=== PATIENT | female | born 1985 | race Caucasian/White ===

== ENCOUNTER 2024-01-11 19:03 | Inpatient (IN) | payer OTHER, MEDICAID ==
[~2024-01-11] VITALS: Ht 165.1 cm; Wt 74.8 kg
[~2024-01-11 19:03] MED LIST: ADAL40KI SQ; ATOR10TA PO; ESCI5TAB PO; INSLIS SUBCUT; INSU100I28 SQ; LOSA50TA41 PO; MESA800T PO; PANT40SU PO; SEMA2PEN
[2024-01-11 20:29] LABS: BASOPHILS % 0.5 % (0.0-2.0); CHLORIDE 105 mEq/L (98-107); HEMOGLOBIN. 11.7 g/dL (12.0-16.0); LYMPHOCYTES % 18.1 % (20.0-50.0); MEAN CORPUSCULAR HEMOGLOBIN 29.7 pg (28.0-32.0); MEAN CORPUSCULAR HGB CONC 33.4 g/dL (31.0-37.0); MEAN CORPUSCULAR VOLUME 88.9 fL (81.0-99.0); MONOCYTES % 7.4 % (2.0-8.0); PLATELET 315 x1000/uL (130-400); RED BLOOD CELL COUNT 3.93 mill/uL (4.2-5.4); RED CELL DISTRIBUTION WIDTH 13.5 % (11.6-14.6); SODIUM 137 mEq/L (136-145); WHITE BLOOD COUNT 8.9 x1000/uL (4.5-11.0)
[2024-01-11 20:30] LABS: CARBON DIOXIDE 26 mEq/L (21-32)
[2024-01-11 20:33] LABS: PROTHROMBIN TIME 10.7 sec (9.6-11.0)
[2024-01-11 20:35] LABS: CREATININE 0.5 mg/dL (0.6-1.0); GLUCOSE 88 mg/dL (70-105); UREA NITROGEN BLOOD 8 mg/dL (9-23)
[2024-01-11 20:37] LABS: ALANINE AMINOTRANSFERASE 14 IU/L (10-49); ALBUMIN 4.3 g/dL (3.2-4.8); ASPARTATE AMINOTRANSFERASE 35 IU/L (<34); BILIRUBIN DIRECT 0.2 mg/dL (<=3.0); BILIRUBIN TOTAL 0.9 mg/dL (0.1-1.0); PROTEIN TOTAL 7.3 g/dL (6.0-8.3)
[2024-01-11 20:38] LABS: HCG SCREEN NEGATIVE
[2024-01-11 20:46] LABS: POTASSIUM 2.8 mEq/L (3.5-5.1)
[2024-01-11] MEDS: SODIUM CHLORIDE 0.9% 1,000 ML IV ONE (20:51)
[2024-01-11] MEDS: MORPHINE SULFATE 4 MG/ML INJ (FOR IV/IM USE) IV ONE (20:51)
[2024-01-11] MEDS: DIPHENHYDRAMINE 50MG/ML VIAL IV ONE (20:51)
[2024-01-11] MEDS: ONDANSETRON HCL 4MG/2ML INJ IV ONE (20:51)
[2024-01-11] MEDS: SODIUM CHL 0.9% + KCL 20MEQ/L 1,000 ML IV SCH (21:00)
[2024-01-11] MEDS: POTASSIUM CHLORIDE 20MEQ/PACKET PO NR (21:00)
[2024-01-11] MEDS: IOHEXOL-300 100 ML BOTTLE ONE (23:36)
[2024-01-12 01:59] LABS: CLARITY URINE CLEAR (CLEAR); COLOR URINE YELLOW (YELLOW); GLUCOSE URINE NEGATIVE (NEGATIVE); KETONES URINE 2+ (NEGATIVE); LEUKOCYTE ESTERASE URINE NEGATIVE (NEGATIVE); NITRITE URINE NEGATIVE (NEGATIVE); OCCULT BLOOD URINE 3+ (NEGATIVE); PH URINE 6.5 (4.5-8.0); PROTEIN URINE NEGATIVE (NEGATIVE); SPECIFIC GRAVITY URINE 1.079 (1.005-1.030)
[2024-01-12 02:15] LABS: BACTERIA URINE TRACE; SQUAMOUS EPITHELIAL CELL URINE FEW /lpf (RARE/1+); WBC URINE NONE SEEN /hpf (0-2)
[2024-01-12] MEDS ORDERED: NALOXONE HCL 0.4MG/ML VIAL IV PRN (02:15)
[2024-01-12] MEDS: HYDROCODONE/ACETAMINOPHEN 5/325MG TABLET PO PRN (02:17)
[2024-01-12] MEDS: MORPHINE SULFATE 2 MG/ML INJ (NOT FOR IM USE) IV PRN (04:04)
[2024-01-12] MEDS: MORPHINE SULFATE 2 MG/ML INJ (NOT FOR IM USE) IV NR (09:00)
[2024-01-12] MEDS: ONDANSETRON HCL 4MG/2ML INJ IV PRN (09:00)
[2024-01-12] MEDS: ENOXAPARIN 40MG/0.4ML SYR SUBCUT SCH (09:04)
[2024-01-12 09:15] LABS: HEMATOCRIT 33.8 % (36.0-48.0); HEMOGLOBIN 11.4 g/dL (12.0-16.0); MEAN CORPUSCULAR HGB CONC 33.7 g/dL (31.0-37.0); MEAN CORPUSCULAR VOLUME 89.1 fL (81.0-99.0); PLATELET 309 x1000/uL (130-400); RED BLOOD CELL COUNT 3.79 mill/uL (4.2-5.4); RED CELL DISTRIBUTION WIDTH 13.3 % (11.6-14.6); WHITE BLOOD COUNT 9.8 x1000/uL (4.5-11.0)
[2024-01-12] MEDS: DIPHENHYDRAMINE 50MG/ML VIAL IV NR (09:38)
[2024-01-12] MEDS: METHYLPREDNISOLONE SOD SUCC 125MG/2ML (ACT-O-VIAL) IV SCH (12:53)
[2024-01-12] MEDS: SODIUM CHLORIDE 0.9% 3ML FLUSH IVF SCH (14:07)
[2024-01-12] MEDS: MESALAMINE 400 MG CAPSULE.DR PO SCH (18:17)
[2024-01-12] MEDS: SODIUM CHL 0.9% + KCL 20MEQ/L 1,000 ML IV SCH (18:21)
[2024-01-12 20:00] VITALS: BP 101/61; PULSE 82; RESP 18; RESP 19; TEMP 36.61404; TEMP 36.6404; O2SAT 95
[2024-01-12] MEDS: DIPHENHYDRAMINE 50MG/ML VIAL IM PRN (23:41)
[2024-01-13] VITALS: BP 101/55; PULSE 72; RESP 18; TEMP 36.83628; O2SAT 95
[2024-01-13 00:50] LABS: CHLORIDE 103 mEq/L (98-107); POTASSIUM 2.9 mEq/L (3.5-5.1); SODIUM 137 mEq/L (136-145)
[2024-01-13 00:51] LABS: CALCIUM 8.7 mg/dL (8.7-10.4); CARBON DIOXIDE 26 mEq/L (21-32)
[2024-01-13 00:56] LABS: CREATININE 0.5 mg/dL (0.6-1.0); GLUCOSE 151 mg/dL (70-105)
[2024-01-13 01:03] LABS: UREA NITROGEN BLOOD < 5 mg/dL (9-23)
[2024-01-13 04:00] VITALS: BP 88/48; PULSE 74; RESP 19; TEMP 36.114; O2SAT 97
[2024-01-13 07:22] LABS: CARBON DIOXIDE 26 mEq/L (21-32); CHLORIDE 103 mEq/L (98-107); POTASSIUM 3.1 mEq/L (3.5-5.1); SODIUM 138 mEq/L (136-145)
[2024-01-13 07:25] LABS: BASOPHILS % 0.1 % (0.0-2.0); HEMATOCRIT. 34.3 % (36.0-48.0); HEMOGLOBIN. 11.7 g/dL (12.0-16.0); LYMPHOCYTES % 8.8 % (20.0-50.0); MEAN CORPUSCULAR HEMOGLOBIN 30.1 pg (28.0-32.0); MEAN CORPUSCULAR VOLUME 88.5 fL (81.0-99.0); MEAN PLATELET VOLUME 7.8 fl (7.4-10.4); MONOCYTES % 3.2 % (2.0-8.0); NEUTROPHILS % 87.9 % (40.0-76.0); PLATELET 318 x1000/uL (130-400); RED BLOOD CELL COUNT 3.87 mill/uL (4.2-5.4); RED CELL DISTRIBUTION WIDTH 13.1 % (11.6-14.6); WHITE BLOOD COUNT 8.5 x1000/uL (4.5-11.0)
[2024-01-13 07:27] LABS: CREATININE 0.5 mg/dL (0.6-1.0)
[2024-01-13 07:28] LABS: GLUCOSE 138 mg/dL (70-105); UREA NITROGEN BLOOD 6 mg/dL (9-23)
[2024-01-13 08:00] VITALS: BP 95/50; PULSE 78; RESP 17; TEMP 36.28068; O2SAT 96
[2024-01-13 12:00] VITALS: BP 108/62; PULSE 82; RESP 19; TEMP 36.61404; O2SAT 98
[2024-01-13 16:00] VITALS: BP 100/64; PULSE 78; RESP 20; TEMP 36.50292; O2SAT 97
[2024-01-13] MEDS ORDERED: PRED5TAB MT (19:21)
[2024-01-13] MEDS ORDERED: MESA500C5 PO (19:21)
[2024-01-13 20:00] VITALS: BP 96/49; PULSE 78; RESP 19; TEMP 36.89184; O2SAT 100
[2024-01-13] MEDS ORDERED: POTA20LI52 GT (20:02)
[2024-01-14] VITALS: BP 96/49; PULSE 82; RESP 18; TEMP 36.61404; O2SAT 100
[2024-01-14 04:00] VITALS: BP 89/55; PULSE 71; RESP 18; TEMP 36.55848; O2SAT 97
[2024-01-14 07:49] VITALS: BP 118/75; PULSE 87; TEMP 97.9; O2SAT 99
[2024-01-14 08:00] VITALS: BP 118/75; PULSE 87; RESP 19; TEMP 36.44736; O2SAT 99
== END 2024-01-14 08:45 | disposition home or self-care (01) | DRG 387 ==
LOC: ER 19:03 → MICUSO 22:01 → EDBEDREQ 22:08 → EDBEDREQTM 22:08 → EDBEDREQSVC 22:08 → 5WST 01-12 14:29 → 7EST 01-12 19:05
PROVIDERS: ADMIT Internal Medicine; ATTEND Internal Medicine
DX: K51.911 Ulcerative colitis, unspecified with rectal bleeding (principal); E87.6 Hypokalemia; M32.9 Systemic lupus erythematosus, unspecified; E03.9 Hypothyroidism, unspecified; E11.9 Type 2 diabetes mellitus without complications; N20.0 Calculus of kidney; E66.9 Obesity, unspecified; M06.9 Rheumatoid arthritis, unspecified; D18.09 Hemangioma of other sites; Z86.73 Personal history of transient ischemic attack (TIA), and cerebral infarction without residual deficits; R16.0 Hepatomegaly, not elsewhere classified; Z79.899 Other long term (current) drug therapy; Z79.4 Long term (current) use of insulin; Z90.49 Acquired absence of other specified parts of digestive tract; Z68.27 Body mass index [BMI] 27.0-27.9, adult
CPT/HCPCS: 36415; 74177; 80048; 80076; 81003; 82270; 82962; 83036; 83735; 84703; 85025; 85027; 86850; 86900; 87015; 87045; 87427; 87449; 87493; 89055; 99285; J1200; J1650; J2270; J2405; J2919; J3480; J7030; Q9967